=== PATIENT | female | born 1930 | race Hispanic/Latino ===

== ENCOUNTER 2017-12-28 16:13 | Emergency (ER) | payer MEDICARE, OTHER ==
[2017-12-28 16:25] VITALS: RESP 18; TEMP 98.3; BMI 25.0
--- NOTE | 2017-12-28 16:50 | ED PDOC ---
Arrival/HPI - General Time Seen by Provider: 12/28/17 16:25 - History of Present Illness Narrative History of Present Illness (Text): 87 y/o F c PMHx Alzheimer's dementia p/w fall. Daughter states patient got up from bed, lost balance, and fell, hitting head and lower back. Patient since then has been walking with limp. Denies fever, chills, chest pain, dyspnea, nausea, vomiting. Acetaminophen taken prior to arrival. 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 - HEENT Hx HEENT Disorder: Yes Hx Cataracts: Yes (bilateral surgery) - Renal Hx Renal Disorder: Yes - Endocrine/Metabolic Hx Endocrine Disorders: Yes Hx Diabetes Mellitus Type 2: Yes - Hematological/Oncological Hx Blood Disorders: No - Integumentary Hx Dermatological Disorder: No - Musculoskeletal/Rheumatological Hx Musculoskeletal Disorders: Yes Hx Falls: No - Gastrointestinal Hx Gastrointestinal Disorders: Yes - Genitourinary/Gynecological Hx Genitourinary Disorders: No - Psychiatric Hx Psychophysiologic Disorder: Yes Hx Substance Use: No - Surgical History Other/Comment: Coronary stent, tonsilectomy, tubal ligation - Anesthesia Hx Anesthesia Reactions: No Hx Malignant Hyperthermia: No - Suicidal Assessment Feels Threatened In Home Enviroment: No Family/Social History Family/Social History: No Known Family HX Smoking Status: Light Smoker < 10 Cigarettes Daily Hx Alcohol Use: No Hx Substance Use: No Hx Substance Use Treatment: No Allergies/Home Meds Allergies/Adverse Reactions: Allergies No Known Allergies Allergy (Verified 12/28/17 16:50) Home Medications: Home Meds Medication Instructions Recorded Confirmed Atorvastatin Calcium [Lipitor] 10 mg PO DAILY 11/08/14 01/26/17 Review of Systems - Physician Review All systems were reviewed & negative as marked: Yes - Review of Systems Respiratory: absent: SOB Gastrointestinal: absent: Vomiting Physical Exam - Physical Exam Narrative Physical Exam (Text): Gen: NAD Head: L parietal contusion Eyes: PERRL ENT: MMM Neck: No midline tenderness Chest: No tenderness CV: Regular rate Lungs: Equal breath sounds bilaterally Abd: Soft, NT Back: No midline tenderness. Ecchymosis over L lower back Skin: Ecchymosis as above Extremities: FROM x 4. No tenderness. Pelvis stable. Neuro: Alert Vital Signs Temp Pulse Resp BP Pulse Ox 12/28/17 18:14 94 H 18 142/86 95 12/28/17 16:25 98.3 F 104 H 18 146/91 H 95 Medical Decision Making ED Course and Treatment: 12/28/17 18:37 IMPRESSION: No acute intracranial hemorrhage. . 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 No change in position of left ventriculostomy catheter. . 12/28/17 18:[address] IMPRESSION: No evidence of fracture. Will discharge back to skilled nursing, return to ED for worsening pain, confusion , vomiting, dyspnea, or any other problem. - RAD Interpretation Radiology Orders: 12/28/17 16:45 HEAD W/O CONTRAST [CT] Stat HIP MIN 2V W/ PELVIS LT [RAD] Stat 12/28/17 18:00 PELVIS W/O PO OR IV CONTRAST [CT] Stat Disposition/Present on Arrival - Present on Arrival Any Indicators Present on Arrival: No History of DVT/PE: No History of Uncontrolled Diabetes: No Urinary Catheter: No History Surgical Site Infection Following: None - Disposition Have Diagnosis and Disposition been Completed?: Yes Diagnosis: Head injury, Ecchymosis Disposition: HOME/ ROUTINE Disposition Time: 18:39 Patient Plan: Discharge Condition: STABLE Discharge Instructions (ExitCare): Closed Head Injury Referrals: Lamin Jorgenesn MD [Primary Care Provider] - Follow up with primary
--- NOTE | 2017-12-28 18:27 | CT ---
PROCEDURE: CT HEAD WITHOUT CONTRAST. HISTORY: fall COMPARISON: 01/18/2017 TECHNIQUE: Axial computed tomography images were obtained through the head/brain without intravenous contrast. Radiation dose: Total exam DLP = 917.58 mGy-cm. This CT exam was performed using one or more of the following dose reduction techniques: Automated exposure control, adjustment of the mA and/or kV according to patient size, and/or use of iterative reconstruction technique. FINDINGS: HEMORRHAGE: No intracranial hemorrhage. 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 No other intracranial mass. Left parietal ventriculostomy catheter unchanged in position. VENTRICLES: No hydrocephalus. No midline shift. CALVARIUM: Multiple angel holes and right frontal craniotomy. PARANASAL SINUSES: Bilateral maxillary retention cyst/polyp. MASTOID AIR CELLS: Unremarkable as visualized. No inflammatory changes. OTHER FINDINGS: None. IMPRESSION: No acute intracranial hemorrhage. . 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 No change in position of left ventriculostomy catheter. .
--- NOTE | 2017-12-28 18:39 | CT ---
PROCEDURE: CT pelvis HISTORY: L hip pain, fall COMPARISON: CT abdomen/pelvis 11/15/2017 TECHNIQUE: 2.5 mm contiguous axial sections were acquired through the pelvis. Sagittal and coronal images were reformatted from the axial scan. Total exam DLP: 428.03 mGy-cm This CT exam was performed using 1 or more of the following dose reduction techniques: Automated exposure control, adjustment of the mA and/or kV according to patient size, and/or use of iterative reconstruction technique. FINDINGS: There is no evidence of fracture. The hips are intact. Pelvis is unremarkable. There is no sacral fracture. There is no lytic or blastic osseous lesion. There is no soft tissue hematoma. There is diverticulosis of the sigmoid colon. No pelvic mass or fluid collection is identified. A ventriculoperitoneal shunt is noted. IMPRESSION: No evidence of fracture.
--- NOTE | 2017-12-28 18:53 | RAD ---
PROCEDURE: Left Hip X-ray Radiographs. HISTORY: fall COMPARISON: None. FINDINGS: BONES: Bone alignment and mineralization are normal. There is no acute displaced fracture or bone destruction. JOINTS: The hip joint spaces are preserved. There is mild osteitis pubis. 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 SOFT TISSUES: Normal. OTHER FINDINGS: There atherosclerotic vascular calcifications. IMPRESSION: No acute displaced fracture or dislocation. Please note occult fractures cannot be excluded on plain radiographs. If there is a persistent clinical concern, an MRI of the hip may be performed for further evaluation.
[2017-12-28 19:10] VITALS: BP 140/82; PULSE 90; O2SAT 96
== END 2017-12-28 19:09 | disposition home or self-care (01) ==
LOC: ED 16:13
DX: S09.90XA Unspecified injury of head, initial encounter (principal); W19.XXXA Unspecified fall, initial encounter; F02.80 Dementia in other diseases classified elsewhere, unspecified severity, without behavioral disturbance, psychotic disturbance, mood disturbance, and anxiety; G30.9 Alzheimer's disease, unspecified; I10 Essential (primary) hypertension; E11.9 Type 2 diabetes mellitus without complications; F17.210 Nicotine dependence, cigarettes, uncomplicated

== ENCOUNTER 2018-08-22 09:00 | Outpatient (CLI) | payer MEDICARE, OTHER | END 2018-08-22 09:15 | disposition home or self-care (01) | LOC: CARDIO 09:00 ==

== ENCOUNTER 2018-11-21 15:18 | Outpatient (CLI) | payer MEDICARE, OTHER | END 2018-11-21 15:19 | disposition home or self-care (01) | LOC: CARDIO 15:18 ==